=== PATIENT | female | born 2000 | race Caucasian/White ===

== ENCOUNTER 2020-01-04 13:59 | Emergency (ER) | payer MEDICAID ==
[2020-01-04 14:10] VITALS: BP 145/82
[2020-01-04] MEDS ORDERED: IBUPROFEN 800 MG TABLET PO ONE (14:22)
[2020-01-04] MEDS ORDERED: PREDNISONE 20 MG TABLET PO ONE (14:22)
--- NOTE | 2020-01-04 14:22 | ER Document Report ---
HPI - HPI Patient complains to provider of: headache, facial droop Time Seen by Provider: 01/04/20 14:08 Onset: Last week Onset/Duration: Persistent Quality of pain: Achy Context: 19-year-old presents to the emergency department with complaints of headache ear pain for the past 7 days. Also reports of left eye clear drainage. Denies fever vomiting diarrhea. Denies trauma. Denies history of herpes. Reports she has been taking ibuprofen and Advil for headache yesterday without relief of symptoms. Associated Symptoms: None Exacerbated by: Denies Relieved by: Denies Similar symptoms previously: No Recently seen / treated by doctor: No Past Medical History - General Information source: Patient Last Menstrual Period: current - Social History Smoking Status: Unknown if Ever Smoked Occupation: [employer] Lives with: Family Family History: None Patient has suicidal ideation: No Patient has homicidal ideation: No - Medical History Medical History: Negative Surgical Hx: Negative Vertical Provider Document - CONSTITUTIONAL Agree With Documented VS: Yes Exam Limitations: No Limitations General Appearance: WD/WN - INFECTION CONTROL TRAVEL OUTSIDE OF THE [place] IN LAST 30 DAYS: No - HEENT HEENT: Atraumatic, PERRLA. negative: Conjuctival Injection, Normocephalic, Pharyngeal Erythema, Tympanic Membrane Red, Tympanic Membrane Bulging Notes: Patient smile asymmetric. Unable to smile on the left side of her face. Patient is able to close her left eye adequately. Raises bilateral eyebrows's. - NECK Neck: Normal Inspection, Supple - RESPIRATORY Respiratory: Breath Sounds Normal, No Respiratory Distress - CARDIOVASCULAR Cardiovascular: Regular Rhythm, Tachycardia - GI/ABDOMEN Gastrointestinal: Abdomen Soft, Abdomen Non-Tender - MUSCULOSKELETAL/EXTREMETIES Musculoskeletal/Extremeties: MAEW, FROM - [employer] representative equal bilaterally - NEURO Level of Consciousness: Awake, Alert, Appropriate Motor/Sensory: No Motor Deficit - DERM Integumentary: Warm, Dry, No Rash Course - Re-evaluation Re-evalutation: 01/04/20 14:37 Patient instructed on Bello's palsy. Was given written information regarding Bello's palsy. Also instructed on steroids. Patient was instructed on the importance of follow-up with her primary care provider. She reports she just discovered she does have a primary care provider. She was instructed to return here for worsening symptoms or concerns. She verbalized understand all instructions. - Vital Signs Vital signs: Temp Pulse Resp BP Pulse Ox 97.9 F 104 H 14 145/82 H 100 01/04/20 14:04 01/04/20 14:04 01/04/20 14:04 01/04/20 14:04 01/04/20 14:04 Discharge - Discharge Clinical Impression: Bello's palsy Condition: Stable Disposition: HOME, SELF-CARE Instructions: Bello's Palsy ([facility]), Steroid Medication Additional Instructions: *You have been evaluated for bells palsy *Take medication as prescribed *Use eyedrops *Follow up with primary care provider within 1 week for recheck *Return to ED for worsening condition, changes, needs Prescriptions: Prednisone [Deltasone 10 mg Tablet] 10 mg PO ASDIR PRN #21 tablet PRN Reason: Prednisone [Deltasone 20 mg Tablet] 40 mg PO BID #20 tablet Forms: Elevated Blood Pressure, Return to Work
== END 2020-01-04 14:31 | disposition home or self-care (01) ==
LOC: ER 13:59
DX: G51.0 Bell's palsy (principal); R51 Headache; H92.09 Otalgia, unspecified ear; R00.0 Tachycardia, unspecified
CPT/HCPCS: 99284; J3490; J7512